=== PATIENT | female | born 1945 | race Caucasian/White ===

== ENCOUNTER 2017-06-26 11:16 | Outpatient (CLI) | payer OTHER | END 2017-06-26 11:23 | disposition home or self-care (01) | LOC: SONOGRAMA 11:16 | DX: M19.072 Primary osteoarthritis, left ankle and foot (principal) ==

== ENCOUNTER 2022-03-06 05:57 | Day surgery (SDC) | payer OTHER ==
[~2022-03-06] VITALS: Ht 160 cm; Wt 95.3 kg
[~2022-03-06 05:57] MED LIST: FENOFIBRATE145 MG PO; GABAPENTIN300 M2 PO; LEVO-T75 MCG PO; LIPITOR20 MG PO; LOSARTAN POTASS50 MG PO; NORVASC10 MG PO
== END 2022-03-06 13:30 | disposition home or self-care (01) ==
LOC: CIR.AMB 05:57
PROVIDERS: ATTEND Orthopaedic Surgery Hand Surgery
DX: M65.331 Trigger finger, right middle finger (principal); Z20.822 Contact with and (suspected) exposure to COVID-19; I10 Essential (primary) hypertension; Z86.16 Personal history of COVID-19; E11.9 Type 2 diabetes mellitus without complications; E03.9 Hypothyroidism, unspecified